=== PATIENT | male | born 1960 | race African-American/Black ===

== ENCOUNTER 2020-12-23 14:41 | Emergency (ER) | payer OTHER ==
[~2020-12-23] VITALS: Ht 175.3 cm; Wt 72.7 kg
--- NOTE | 2020-12-23 15:18 | PHYS DOC ---
Past History Past Surgical History: No Surgical History Alcohol Use: None General Adult EDM: Chief Complaint: TOE PROBLEM HPI: HPI: 60-year-old male presents with right second toe pain. The patient [facility] and has been having intermittent problems with his second toe hurting. He has been taking ibuprofen on and off. Today, the patient noticed that the toe was very sensitive to any kind of touch. He cannot wear his shoes. The patient does have fungal infection of the first second and third toenails. He does not know if the pain is related to that or something else. No history of gout. Review of Systems: Review of Systems: Constitutional: Denies fever or chills Eyes: Denies change in visual acuity HENT: Denies nasal congestion or sore throat Respiratory: Denies cough or shortness of breath Cardiovascular: Denies chest pain or edema GI: Denies abdominal pain, nausea, vomiting, bloody stools or diarrhea : Denies dysuria Musculoskeletal: Denies back pain or joint pain Integument: extremely tender right second toe. Neurologic: Denies headache, focal weakness or sensory changes Endocrine: Denies polyuria or polydipsia Lymphatic: Denies swollen glands Psychiatric: Denies depression or anxiety Allergies: Allergies: Allergies Coded Allergies Type Severity Reaction Last Updated Verified No Known Drug Allergies 12/23/20 No Physical Exam: PE: Constitutional: Well developed, well nourished, no acute distress, non-toxic appearance. [] HENT: Normocephalic, atraumatic, bilateral external ears normal, oropharynx moist, no oral exudates, nose normal. [] Eyes: PERRLA, EOMI, conjunctiva normal, no discharge. [] Neck: Normal range of motion, no tenderness, supple, no stridor. [] Cardiovascular: Heart rate regular rhythm, no murmur [] Lungs & Thorax: Bilateral breath sounds clear to auscultation [] Abdomen: Bowel sounds normal, soft, no tenderness, no masses, no pulsatile masses. [] Skin: Erythematous, extremely tender right second toe. [] Back: No tenderness, no CVA tenderness. [] Extremities: No tenderness, no cyanosis, no clubbing, ROM intact, no edema. [] Neurologic: Alert and oriented X 3, normal motor function, normal sensory function, no focal deficits noted. [] Psychologic: Affect normal, judgement normal, mood normal. [] Current Patient Data: Vital Signs: Vital Signs Date Time Temp Pulse Resp B/P (MAP) Pulse Ox O2 Delivery O2 Flow Rate FiO2 12/23/20 14:54 98.4 74 16 129/75 100 Room Air EKG: EKG: [] Radiology/Procedures: Radiology/Procedures: [] Heart Score: C/O Chest Pain: N/A Risk Factors: Risk Factors: DM, Current or recent (<one month) smoker, HTN, HLP, family history of CAD, obesity. Risk Scores: Score 0 - 3: 2.5% MACE over next 6 weeks - Discharge Home Score 4 - 6: 20.3% MACE over next 6 weeks - Admit for Clinical Observation Score 7 - 10: 72.7% MACE over next 6 weeks - Early Invasive Strategies Course & Med Decision Making: Course & Med Decision Making Pertinent Labs and Imaging studies reviewed. (See chart for details) The patient does not have an abnormal uric acid. I am concerned for cellulitis of the toe. I will treat him with Keflex for 7 days. We will give the first dose in the emergency room. I will also give him a tramadol and as prescription for short course of the same. He is stable for discharge at this time. [] Dragon Disclaimer: Dragon Disclaimer: This electronic medical record was generated, in whole or in part, using a voice recognition dictation system. Departure Departure: Impression: Primary Impression: Cellulitis of toe of right foot Disposition: HOME / SELF CARE / HOMELESS Condition: STABLE Referrals: PCP,NO (PCP) Patient Instructions: Cellulitis, Dixa-xy-Hiva Scripts Cephalexin (CEPHALEXIN) 500 Mg Tablet 1 TAB PO TID for cellulitis for 7 Days, #21 TAB Prov: CARRILLO BACON DO 12/23/20 Tramadol Hcl (TRAMADOL HCL) 50 Mg Tablet 50 MG PO PRN Q6HRS PRN for PAIN, #10 TAB Prov: CARRILLO BACON DO 12/23/20 CARRILLO BACON DO Dec 23, 2020 15:18
[2020-12-23 15:50] LABS: BASO # 0.1 x10^3/uL (0.0-0.2); BASO % 2 % (0-3); EOS # 0.2 x10^3/uL (0.0-0.7); EOS % 3 % (0-3); HEMATOCRIT 39.7 % (39.0-53.0); LYMPH # 1.3 x10^3/uL (1.0-4.8); LYMPH % 21 % (24-48); MEAN CORPUSCULAR HEMOGLOBIN 30 pg (25-35); MEAN CORPUSCULAR HGB CONC 33 g/dL (31-37); MEAN CORPUSCULAR VOLUME 92 fL (79-100); MONO # 0.5 x10^3/uL (0.0-1.1); MONO % 8 % (0-9); NEUT # 4.1 x10^3uL (1.8-7.7); NEUT % 66 % (31-73); PLATELET COUNT 239 x10^3/uL (140-400); RED BLOOD COUNT 4.33 x10^6/uL (4.30-5.70); RED CELL DISTRIBUTION WIDTH 15.3 % (11.5-14.5); WHITE BLOOD COUNT 6.1 x10^3/uL (4.0-11.0)
[2020-12-23 15:57] LABS: CREATININE 0.8 mg/dL (0.7-1.3); GFR 118.9; POTASSIUM 3.7 mmol/L (3.5-5.1)
[2020-12-23 16:03] LABS: ALBUMIN 3.3 g/dL (3.4-5.0); TOTAL BILIRUBIN 0.3 mg/dL (0.2-1.0); TOTAL PROTEIN 6.5 g/dL (6.4-8.2)
[2020-12-23] MEDS ORDERED: CEPHALEXIN 250 MG CAPSULE PO ONE (16:15)
[2020-12-23] MEDS ORDERED: TRAM50TA PO (16:25)
[2020-12-23] MEDS ORDERED: CEPH500T PO (16:25)
[2020-12-23] MEDS ORDERED: traMADol 50 MG TABLET PO ONE (16:30)
[2020-12-23 16:56] VITALS: BP 132/76
== END 2020-12-23 16:57 | disposition home or self-care (01) ==
LOC: ER 14:41
DX: L03.031 Cellulitis of right toe (principal)
CPT/HCPCS: 36415; 80053; 84550; 85025; 99283

== ENCOUNTER 2021-01-22 14:25 | Emergency (ER) | payer OTHER ==
[~2021-01-22] VITALS: Ht 175.3 cm; Wt 72.7 kg
[~2021-01-22 14:25] MED LIST: CEPH500T PO; TRAM50TA PO
[2021-01-22] MEDS ORDERED: HYDR-2155 PO ×2 (14:54→15:35)
[2021-01-22] MEDS ORDERED: TERB250T11 PO ×2 (14:54→15:35)
--- NOTE | 2021-01-22 14:55 | PHYS DOC ---
Past History Past Surgical History: No Surgical History (HAYLEE CISNEROS APRN) Alcohol Use: None (HAYLEE CISNEROS APRN) General Adult EDM: Chief Complaint: MEDICATION REFILL HPI: HPI: Patient is a 60-year-old male being seen in the ER for "infected toenail". Patient was seen in this ER about a month ago and diagnosed with cellulitis of the second toe as well as a fungal infection. Patient was discharged home with tramadol and Keflex. Patient states that his symptoms have not improved since then. He rates his pain 10 out of 10. He has no medical history. He denies any fevers or decreased sensation. Patient is able to bear weight and ambulate with a steady gait. (HAYLEE CISNEROS APRN) Review of Systems: Review of Systems: 14 body systems of the review of systems have been reviewed. See HPI for pertin ent positive and negative responses, otherwise all other systems are negative, nonpertinent or noncontributory (HAYLEE CISNEROS APRN) Allergies: Allergies: Allergies Coded Allergies Type Severity Reaction Last Updated Verified No Known Drug Allergies 12/23/20 No (HAYLEE CISNEROS APRN) Physical Exam: PE: Constitutional: Well developed, well nourished, no acute distress, non-toxic appearance. [] HENT: Normocephalic, atraumatic Eyes: PERRL, EOMI, conjunctiva normal, no discharge. [] Neck: Normal range of motion, no stridor Cardiovascular: Normal peripheral perfusion Lungs & Thorax: Normal work of breathing, no tachypnea Skin: Warm, dry, no erythema, no rash. [] Back: Normal range of motion Extremities: No tenderness, no cyanosis, no clubbing, ROM intact, no edema. Right second toe: Thickened nail plate with yellow discoloration, no redness/swelling/drainage/warmth or streaking noted, neurovascularly intact, range of motion intact Neurologic: Alert and oriented X 3, normal motor function, normal sensory function, no focal deficits noted. [] Psychologic: Affect normal, judgement normal, mood normal. [] (HAYLEE CISNEROS APRN) Current Patient Data: Vital Signs: Vital Signs Date Time Temp Pulse Resp B/P (MAP) Pulse Ox O2 Delivery O2 Flow Rate FiO2 01/22/21 14:30 97.6 70 16 124/70 (88) 100 Room Air (HAYLEE CISNEROS APRN) EKG: EKG: [] (HAYLEE CISNEROS APRN) Radiology/Procedures: Radiology/Procedures: [] (HAYLEE CISNEROS APRN) Heart Score: C/O Chest Pain: No Risk Factors: Risk Factors: DM, Current or recent (<one month) smoker, HTN, HLP, family history of CAD, obesity. Risk Scores: Score 0 - 3: 2.5% MACE over next 6 weeks - Discharge Home Score 4 - 6: 20.3% MACE over next 6 weeks - Admit for Clinical Observation Score 7 - 10: 72.7% MACE over next 6 weeks - Early Invasive Strategies (HAYLEE CISNEROS APRN) Course & Med Decision Making: Course & Med Decision Making Pertinent Labs and Imaging studies reviewed. (See chart for details) [] Patient is a 60-year-old male being seen in the ER for a fungal infection to his right second toe. Patient had taken Keflex and tramadol last month. Patient will be discharged home with terbinafine and pain medication. Patient advised to follow-up with the hearing screener. I discussed with patient all findings as well as the need to follow-up with PCP for further evaluation and treatment or return to the ER if any new or worsening symptoms. Strict return precautions were also discussed at length. Patient voiced understanding and agreement with the plan. Patient is hemodynamically stable at the time of disposition. (HAYLEE CISNEROS APRN) Course & Med Decision Making I was the Attending physician on the above date of service of this patient. This patient was evaluated, examined, treated, and dispositioned from the emergency department by the mid-level practitioner. Although I was working at the time , no assistance was requested. Electronically signed, Brenda Bueno DO (BRENDA BUENO DO) Renée Disclaimer: Renée Disclaimer: This electronic medical record was generated, in whole or in part, using a voice recognition dictation system. (HAYLEE CISNEROS APRN) Departure Departure: Impression: Primary Impression: Onychomycosis Disposition: HOME / SELF CARE / HOMELESS Condition: GOOD Referrals: PCP,NO (PCP) Patient Instructions: Athlete's Foot Additional Instructions: You were seen in the ER for a fungal infection to your toe. Take the medication that you are prescribed as directed. You are being discharged home with pain medication. This medication may cause sedation, do not take needs to be alert do not take with alcohol. Please follow-up with the hearing screener. You can follow-up with associated hearing screener, please call [phone] to set up an appointment. If you develop worsening of your pain, high fevers refractory to treatment, redness/warmth/drainage from site or any new or worsening concerns please return. EMERGENCY DEPARTMENT GENERAL DISCHARGE INSTRUCTIONS Thank you for coming to [facility] (ED) today and trusting us with you care. We trust that you had a positivie experience in our Emergency Department. If you wish to speak to the department management, you may call the director at [phone]. YOUR FOLLOW UP INSTRUCTIONS ARE FOLLOWS: 1. Do you have a private Doctor? If you do not have a private doctor, please ask for a resource list of physicians or clinics that may be able to assist you with fol low up care. 2. The Emergency Physician has interpreted your x-rays. The X-Ray specialist will also review them. If there is a change in the findings, you will be notified in 48 hours when at all possible. 3. A lab test or culture has been done, your results will be reviewed and you will be notified if you need a change in treatment. ADDITIONAL INSTRUCTIONS AND INFORMATION: 1. Your care today has been supervised by a physician who is specially trained in emergency care. Many problems require more than one evaluation for a complete diagnosis and treatment. We recommend that you schedule your follow up appointment as r ecommended to ensure complete treatment of you illness or injury. If you are unable to obtain follow up care and continue to have a problem, or if your condition worsens, we recommend that you return to the ED. 2. We are not able to safely determine your condition over the phone nor are we able to give sound medical advice over the phone. For these safety reasons, if you call for medical advice we will ask you to come to the ED for further evaluation. 3. If you have any questions regarding these discharge instructions please call the ED at [phone]. SAFETY INFORMATION: In the interest of safety, wellness, and injury prevention; we encourage you to wear your sealbelt, if you smoke; quite smoking, and we encourage family to use a protective helmet for bicycling and other sporting events that present an increased risk for head injury. IF YOUR SYMPTOMS WORSEN OR NEW SYMPTOMS DEVELOP, OR YOU HAVE CONCERNS ABOUT YOUR CONDITION; OR IF YOUR CONDITION WORSENS WHILE YOU ARE WAITING FOR YOUR FOLLOW UP APPOINTMENT; EITHER CONTACT YOUR PRIMARY CARE DOCTOR, THE PHYSICIAN WHOSE NAME AND NUMBER YOU WERE GIVEN, OR RETURN TO THE ED IMMEDIATELY. Scripts Terbinafine Hcl (TERBINAFINE HCL) 250 Mg Tablet 1 TAB PO DAILY for onychomycosis for 84 Days, #84 TAB 0 Refills Prov: HAYLEE CISNEROS APRN 01/22/21 Hydrocodone Bit/Acetaminophen (HYDROCODONE-APAP 5-325 ) 1 Each Tablet 1 TAB PO PRN Q6HRS PRN for PAIN for 1 Day, #4 TAB 0 Refills Prov: HAYLEE CISNEROS APRN 01/22/21 HAYLEE CISNEROS APRN Jan 22, 2021 14:55 BRENDA BUENO DO Jan 23, 2021 06:20
[2021-01-22] MEDS ORDERED: HYDROcodone/APAP 5/325MG 1 TAB TABLET PO ONE (15:15)
== END 2021-01-22 15:15 | disposition home or self-care (01) ==
LOC: ER 14:25
DX: B35.1 Tinea unguium (principal)
CPT/HCPCS: 99283